=== PATIENT | male | born 1945 | race Caucasian/White ===

== ENCOUNTER 2023-07-16 16:19 | Inpatient (IN) | payer MEDICARE, SELFPAY ==
[2023-07-16] VITALS (36 sets, daily range): BP systolic 103–134; BP diastolic 57–80; PULSE 80–112; RESP 11–18; TEMP 36.9; O2SAT 98–100
--- NOTE | ~2023-07-16 | US_ITS ---
EXAMINATION: US venous doppler [facility] DATE: 07/16/2023 19:15 INDICATION: Bilateral lower limb swelling TECHNIQUE: Carpenter scale images without and with compression and Doppler images of the bilateral lower e xtremity veins were obtained. COMPARISON: None FINDINGS: The right common femoral vein, profunda femoral vein, femoral vein, popliteal vein, peroneal trunk, p osterior tibial veins, and greater saphenous vein are patent. The left common femoral vein, profunda femoral vein, femoral vein, popliteal vein, peroneal trunk, po sterior tibial veins, and greater saphenous vein are patent. IMPRESSION: 1. Patent bilateral lower extremity veins. No evidence of deep venous thrombosis. Reviewed, dictated and finalized at location F. IMPRESSION: 1. Patent bilateral lower extremity veins. No evidence of deep venous thrombosi s.
--- NOTE | ~2023-07-16 | XR_ITS ---
EXAMINATION: XR hand LT min 3V INDICATION: Left hand pain TECHNIQUE: Three views of the left hand are obtained. COMPARISON: None available FINDINGS: Bone alignment is normal. There is no fracture. There is moderate polyarticular osteoarthri tis. The soft tissues are unremarkable. IMPRESSION: 1. No acute osseous abnormality. Reviewed, dictated and finalized at location F.
--- NOTE | ~2023-07-16 | US_ITS ---
EXAMINATION: US renal BI DATE: 07/22/2023 18:11 INDICATION: elevated creatinine TECHNIQUE: Multiple grayscale and Doppler ultrasound images of the kidneys were obtained. COMPARISON: None. FINDINGS: The right kidney measures 10.0 x 4.2 x 4.4 cm. The left kidney was obscured by bowel gas. Right corti bebo thinning. Increased right kidney parenchymal echogenicity. There is mild right hydronephrosis. Th e bladder is normal. Ureteral jets not appreciated during the examination. IMPRESSION: Mild right renal atrophy and medical renal disease. Mild right hydronephrosis. Left kidney not visual ized. Reviewed, dictated and finalized at location K. IMPRESSION: Mild right renal atrophy and medical renal disease. Mild right hydronephrosis. Left kidney not visualized.
--- NOTE | ~2023-07-16 | XR_ITS ---
EXAMINATION: XR chest 2V DATE: 07/22/2023 14:23 INDICATION: Shortness of breath TECHNIQUE: AP and lateral views of the chest are obtained. COMPARISON: 07/16/2023 FINDINGS: There are airspace opacities of the lung bases. Small pleural effusions are present. The pr eviously described opacities of the right mid and upper lung zones have resolved. The cardiomediastin al silhouette is normal. There is moderate thoracic spondylosis. IMPRESSION: 1. Bibasilar airspace opacity, consistent with atelectasis versus pneumonia. 2. Small pleural effusions. Reviewed, dictated and finalized at location F.
--- NOTE | ~2023-07-16 | CT_ITS ---
EXAMINATION: CT brain wo con INDICATION: Head injury COMPARISON: None TECHNIQUE: Standard unenhanced head CT. The dose-length product (DLP) was 605.33 mGy-cm. The mA was a djusted according to patient size. Iterative reconstruction technique was employed. FINDINGS: There is a 7 mm contusion medially in the right cerebellum. No evidence of mass lesion. No evidence of acute infarction. There is an old right occipital infarct. There is moderate periventricu lar and subcortical hypodensity probably related to small vessel ischemic disease. There is moderate prominence of the sulci and ventricles related to cerebral atrophy. Intracranial calcified cerebral a therosclerosis is noted. No extra-axial collections. No mass effect or midline shift. The orbits and soft tissues are unremarkable. The visualized sinuses and mastoid air cells are well aerated. IMPRESSION: 1. Small right cerebellar contusion. This finding [facility]. 2. Age related findings. Reviewed, dictated and finalized at location F. IMPRESSION: 1. Small right cerebellar contusion. This finding was discussed with Sharon caruso PA-C in the Emergency Department at 1950 hours on 07/16/2023. 2. Age related findings.
--- NOTE | ~2023-07-16 | XR_ITS ---
EXAMINATION: XR hand RT min 3V INDICATION: Right hand pain TECHNIQUE: Three views of the right hand are obtained. COMPARISON: None available FINDINGS: Bone alignment is normal. There is no fracture. There is moderate polyarticular osteoarthri tis. The soft tissues are unremarkable. IMPRESSION: 1. No acute osseous abnormality. Reviewed, dictated and finalized at location F.
--- NOTE | ~2023-07-16 | XR_ITS ---
EXAMINATION: XR chest 1V INDICATION: Chest pain TECHNIQUE: Frontal view of the chest is obtained. COMPARISON: None available FINDINGS: There is volume loss in the right hemithorax. There are airspace opacities throughout the r ight lung. No pleural effusion or pneumothorax identified. The heart size is normal for technique. IMPRESSION: 1. Volume loss in the right hemithorax with airspace opacities throughout the right lung which could be infectious or inflammatory. Follow-up with nonemergent CT of the chest is recommended. Reviewed, dictated and finalized at location F. IMPRESSION: 1. Volume loss in the right hemithorax with airspace opacities throughout the r ight lung which could be infectious or inflammatory. Follow-up with nonemergent CT of the chest is recommended.
--- NOTE | ~2023-07-16 | XR_ITS ---
EXAMINATION: XR hip BI 2V w AP pelvis DATE: 07/16/2023 19:29 INDICATION: Pain after fall TECHNIQUE: AP view of the pelvis and two views of each hip were obtained. COMPARISON: None. FINDINGS: Bone alignment is normal. There is no fracture. There is mild osteoarthritis of the hips. P hleboliths are noted in the pelvis. IMPRESSION: 1. No acute osseous abnormality. Reviewed, dictated and finalized at location F.
--- NOTE | ~2023-07-16 | MR_ITS ---
EXAMINATION: MR brain/brain stem wo/w con DATE: 07/20/2023 15:30 INDICATION: Abnormal CT scan. TECHNIQUE: Magnetic resonance imaging (MRI) of the brain and brainstem was performed without and with 14 mL Multihance intravenous contrast. Sequences included sagittal and axial T1-weighted SE, axial d iffusion-weighted FS SE, axial 3D SWAN, axial T2-weighted FLAIR, and axial T2-weighted FSE. Postcontr ast axial and coronal T1-weighted SE was obtained. Apparent diffusion coefficient (ADC) maps were cre ated. COMPARISON: CT dated 07/16/2023 FINDINGS: Moderate-sized region of encephalomalacia in the extending from the right occipital lobe along the me dial right temporal lobe consistent with chronic infarct. Additional small old lacunar infarcts at th e right frontal lobe garcia radiata common the left thalamus and in the bilateral cerebellar hemisphe res. There are no areas of restricted diffusion to suggest acute infarction. There are several scatte red small foci of susceptibility artifact in the bilateral cerebral hemispheres and bilateral basal g anglia consistent with old blood products related to chronic microhemorrhage, most likely related to hypertension but could also be seen with amyloid angiopathy. There are scattered areas of nonspecific increased T2-weighted signal intensity in the cerebral white matter, predominantly involving the johnathon p and periventricular white matter. There are no intraparenchymal signal abnormalities seen on the ot her pulse sequences. Symmetric prominence of the sulci and ventricles consistent with moderate age-ap propriate diffuse cerebral volume loss. There are no abnormal extra-axial fluid collections. Flow voi ds are seen in the cerebral arteries on the T2-weighted sequences consistent with their expected leger ncy. Mucous retention cyst in the posterior left maxillary sinus. Visualized orbits and soft tissues are unremarkable. There are no areas of abnormal enhancement on the post contrast images. IMPRESSION: 1. 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 Additional small old lacunar infa rcts at the left thalamus, right frontal lobe and bilateral cerebellar hemispheres. 2. Age-related changes including moderate diffuse volume loss and moderate scattered periventricular predominant nonspecific white matter T2 hyperintensity consistent with chronic small vessel ischemic disease. 3. Multiple scattered small foci of susceptibility artifact consistent with presence of old blood pro ducts likely related to chronic microhemorrhage such as in the setting of hypertension or amyloid ang iopathy. Reviewed, dictated and finalized at location A. IMPRESSION: 1. 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 Additional small old lacunar infarcts at the left thalamus, right frontal lobe and bilater al cerebellar hemispheres. 2. Age-related changes including moderate diffuse volume loss and moderate scat tered periventricular predominant nonspecific white matter T2 hyperintensity co nsistent with chronic small vessel ischemic disease. 3. Multiple scattered small foci of susceptibility artifact consistent with pre sence of old blood products likely related to chronic microhemorrhage such as i n the setting of hypertension or amyloid angiopathy.
--- NOTE | ~2023-07-16 | XR_ITS ---
EXAMINATION: XR abdomen/kub 1V DATE: 07/20/2023 13:35 INDICATION: MRI clearance. TECHNIQUE: A supine view of the abdomen on 2 radiographs was obtained. COMPARISON: None. FINDINGS: Stool distends the rectosigmoid. The small bowel is normal in caliber. There is no radiopaq ue foreign body. IMPRESSION: 1. Stool distends the rectosigmoid. Reviewed, dictated and finalized at location E.
--- NOTE | ~2023-07-16 | CT_ITS ---
EXAMINATION: CT cervical spine wo con DATE: 07/16/2023 20:24 INDICATION: Head injury TECHNIQUE: Computed tomography (CT) of the cervical spine was performed without intravenous contrast. The dose-length product (DLP) was 430.95 mGy-cm. Automated exposure control and iterative reconstruc tion technique were employed. COMPARISON: None FINDINGS: There are 2 mm of anterolisthesis of C3 on C4 and C4 on C5. There is no fracture. The odont oid process is intact. There is moderate loss of intervertebral disc space height at C6-7 and mild lo ss of disc space height at C5-6. The prevertebral soft tissues are normal. There is multilevel mild f acet and uncovertebral joint osteoarthritis. The C3 and C4 facets are fused on the right. A left mast oid effusion is noted. IMPRESSION: 1. Moderate cervical spondylosis without acute findings. Reviewed, dictated and finalized at location F.
--- NOTE | 2023-07-16 18:35 | ED.RECABL ---
HPI - Recheck/Abnormal Lab/Rx General Chief Complaint: Extremity Injury, Upper <Sharon Chacon PA-C - Last Filed: 07/17/23 02:36> Stated Complaint: right hip FX <Sharon Chacon PA-C - Last Filed: 07/17/23 02:36> Time Seen by Provider: 07/16/23 17:14 <Sharon Chacon PA-C - Last Filed: 07/17/23 02:36> Source: patient and EMS <Sharon Chacon PA-C - Last Filed: 07/17/23 02:36> Mode of arrival: EMS <LISA Cabrera Last Filed: 07/17/23 02:36> Limitations: dementia <Sharon Chacon PA-C - Last Filed: 07/17/23 02:36> History of Present Illness HPI narrative: This is an 78-year-old male that presents to the emergency department after an unwitnessed fall at his nursing facility 5 days ago. Patient has history of dementia, unable to obtain any information from him. Her his facility he had fallen on Wednesday. He has some worsening swelling in his hand which prompted them to do an x-ray which showed a fracture in his finger. He has also had swelling in his hands and lower extremities. <Sharon Chacon PA-C - Last Filed: 07/17/23 02:36> Related Data Home Medications: Home Medications Medication Instructions Recorded Confirmed calcitriol 0.25 mcg capsule 0.25 mcg PO DAILY 07/17/23 07/17/23 clonidine HCl 0.1 mg tablet 0.1 mg PO BID 07/17/23 07/17/23 folic acid 1 mg tablet 1 mg PO HS 07/17/23 07/17/23 isosorbide mononitrate 30 mg 30 mg PO DAILY 07/17/23 07/17/23 tablet,extended release 24 hr losartan 25 mg tablet 25 mg PO DAILY 07/17/23 07/17/23 mirtazapine 7.5 mg tablet 7.5 mg PO HS 07/17/23 07/17/23 nifedipine 30 mg tablet,extended 30 mg PO DAILY 07/17/23 07/17/23 release pantoprazole 20 mg tablet,delayed 20 mg PO DAILY 07/17/23 07/17/23 release rosuvastatin 5 mg tablet 5 mg PO DAILY 07/17/23 07/17/23 sodium bicarbonate 650 mg tablet 1,300 mg PO BID 07/17/23 07/17/23 <Sharon Chacon PA-C - Last Filed: 07/17/23 02:36> Allergies/Adverse Reactions: Allergies Allergy/AdvReac Type Severity Reaction Status Date / Time No Known Allergies Allergy Unverified 05/09/12 06:57 <Sharon Chacon PA-C - Last Filed: 07/17/23 02:36> Review of Systems Review of Systems: ROS unobtainable: Yes unobtainable due to medical condition <Sharon Chacon PA-C - Last Filed: 07/17/23 02:36> PMFSH Past Medical History Medical History: Medical History (Updated 07/17/23 @ 02:29 by Sharon Chacon PA-C) History of dementia History of gastroesophageal reflux (GERD) History of hyperlipidemia History of hypertension <Sharon Chacon PA-C - Last Filed: 07/17/23 02:36> Social History Social History: Social History (Updated 07/16/23 @ 18:37 by Sharon Chacon PA-C) Smoking status: Never smoker Alcohol intake: former Substance use: never Substance use type: does not use Spiritual care concerns: No <Sharon Chacon PA-C - Last Filed: 07/17/23 02:36> Exam Narrative: GENERAL: Elderly, well-nourished, and in no acute distress. HEAD: Normocephalic, atraumatic. EYES: PERRLA and EOMI. ENT: Nares clear, no rhinorrhea or epistaxis. Mucous membranes moist. Oropharynx without tonsillar hypertrophy exudate or other lesions. NECK: Supple. No adenopathy or masses. No cervical spine tenderness CHEST: Clear to auscultation. No respiratory distress. No wheezes rales or rhonchi HEART: Regular rate and rhythm. No murmur heard. Normal peripheral pulses. ABDOMEN: Soft, nontender, nondistended, normal active bowel sounds. EXTREMITIES: Normal range of motion. No obvious deformity. Pitting edema to the bilateral lower extremities SKIN: Warm, dry, no rash. NEURO: Alert and oriented x1. Does not follow commands PSYCH: Normal mood and affect <Sharon Chacon PA-C - Last Filed: 07/17/23 02:36> Course Course Emergency Course: Patient's son was updated on his workup <Sharon Chacon PA-C - Last Filed: 07/17/23 02:36> CONTROLLED AREA CHECKER/PA Physician Supervision F
--- NOTE | 2023-07-16 18:45 | PC.NURSE ---
called [facility], spoke with Kamille, states there is no advance directive at this time. she states he is a new admit and his has dementia. full code by default
[2023-07-16 19:55] LABS: Basophils Percent Auto 0.4 % (0.2-1.2); Eosinophils Absolute Auto 0.2 K/mm3 (0-0.3); Hematocrit 28.9 % (42.0-52.0); Hemoglobin 9.3 g/dL (14.0-18.0); Immature Granulocyte Absolute 0.04 K/mm3 (0.00-0.031); Immature Granulocyte Percent A 0.5 % (0-0.5); Lymphocytes Absolute Auto 2.07 K/mm3 (0.9-3.2); Lymphocytes Percent Auto 28.2 % (18.3-44.2); Mean Corpuscular HGB Conc 32.2 g/dl (32-36); Mean Corpuscular Hemoglobin 34.2 pg (26-34); Mean Corpuscular Volume 106.3 fl (80-100); Mean Platelet Volume 10.2 fl (7.4-10.4); Monocytes Absolute Auto 0.7 K/mm3 (0.1-0.6); Monocytes Percent Auto 9.8 % (2.6-8.5); Neutrophils Absolute Auto 4.3 K/mm3 (1.3-6.7); Neutrophils Percent Auto 58.1 % (45.5-73.1); Platelet Count Result 326 k/mm3 (150-375); Red Blood Count 2.72 M/mm3 (4.6-6.20); Red Cell Distribution Width 15.4 % (11.5-14.5); White Blood Count 7.3 K/mm3 (4.5-10.0)
[2023-07-16 20:18] LABS: Alanine Aminotransferase 23 U/L (6-50); Albumin Level 3.1 g/dL (3.5-5.1); Alkaline Phosphatase 99 U/L (38-126); Anion Gap 2 mmol/L (8-16); Aspartate Amino Transferase 32 U/L (17-59); Bilirubin,Total 0.3 mg/dL (0.2-1.3); Blood Urea Nitrogen 46 mg/dL (9-20); Calcium 8.7 mg/dL (8.4-10.2); Carbon Dioxide 23 mmol/L (22-30); Chloride 116 mmol/L (98-107); Estimated CRCL calculation 29 ml/min; Estimated Glomerular Filt Rate 32; Glucose 97 mg/dL (65-110); Potassium 4.5 mmol/L (3.4-5.0); Sodium 141 mmol/L (137-145)
[2023-07-16 20:27] LABS: NT Pro B Type Natriuretic Pept 2980 pg/mL (19.9-100)
--- NOTE | 2023-07-16 22:30 | PC.NURSE ---
Patient been stuck for blood cultures by 3 staff members. Unable to obtain at this time and phlebotomy was called.
[2023-07-16 22:54] LABS: Influenza A QL RT-PCR Negative (Negative); Influenza B QL RT-PCR Negative (Negative); RSV RNA, RT-PCR Negative (Negative); SARS-CoV-2 RNA PCR Negative (Negative)
--- NOTE | 2023-07-16 23:52 | PM.IMHP ---
H&P: HPI History of Present Illness Date/Time: 07/16/23 23:52 Chief Complaint: Fall Narrative: This is an 78-year-old male detention resident with past medical history significant for dementia, GERD, dyslipidemia, hypertension. Patient was brought to the emergency room for evaluation due to fall unw[facility]ed at detention apparently this happened few days ago. Patient is unable to provide any meaningful history. Here preliminary workup was significant for chest x-ray with infiltrate, chemistry panel was significant for BUN of 48 creatinine 2 hemoglobin was 9 hematocrit 28 MCV 106 BNP 2980 EXAMINATION: CT brain wo con ? INDICATION: Head injury ? COMPARISON: None TECHNIQUE: Standard unenhanced head CT. The dose-length product (DLP) was 605.33 mGy-cm. The mA was adjusted according to patient size. Iterative reconstruction technique was employed. ? FINDINGS: There is a 7 mm contusion medially in the right cerebellum. No evidence of mass lesion. No evidence of acute infarction. There is an old right occipital infarct. There is moderate periventricular and subcortical hypodensity probably related to small vessel ischemic disease. There is moderate prominence of the sulci and ventricles related to cerebral atrophy. Intracranial calcified cerebral atherosclerosis is noted. No extra-axial collections. No mass effect or midline shift. The orbits and soft tissues are unremarkable. The visualized sinuses and mastoid air cells are well aerated. IMPRESSION: 1. Small right cerebellar contusion. This finding was discussed with Sharon Chacon PA-C in the Emergency Department at 1950 hours on 07/16/2023. 2. Age related findings. EXAMINATION: XR hip BI 2V w AP pelvis DATE: 07/16/2023 19:29 INDICATION: Pain after fall TECHNIQUE: AP view of the pelvis and two views of each hip were obtained. COMPARISON: None. FINDINGS: Bone alignment is normal. There is no fracture. There is mild osteoarthritis of the hips. Phleboliths are noted in the pelvis. IMPRESSION: 1. No acute osseous abnormality. EXAMINATION: XR chest 1V INDICATION: Chest pain TECHNIQUE: Frontal view of the chest is obtained. COMPARISON: None available FINDINGS: There is volume loss in the right hemithorax. There are airspace opacities throughout the right lung. No pleural effusion or pneumothorax identified. The heart size is normal for technique. IMPRESSION: 1. Volume loss in the right hemithorax with airspace opacities throughout the right lung which could be infectious or inflammatory. Follow-up with nonemergent CT of the chest is recommended. Review of Systems Review of Systems: ROS unobtainable: Yes unobtainable due to mental status ( dementia) [facility] Past Medical History Medical History (Updated 07/17/23 @ 02:10 by Isaak Nunez MD) History of dementia History of gastroesophageal reflux (GERD) History of hyperlipidemia History of hypertension Social History Social History (Updated 07/16/23 @ 18:37 by Sharon Chacon PA-C) Smoking status: Never smoker Alcohol intake: former Substance use: never Substance use type: does not use Spiritual care concerns: No Meds Home Medications and Allergies Home Medications Medication Instructions Recorded Confirmed Type calcitriol 0.25 mcg capsule 0.25 mcg PO DAILY 07/17/23 07/17/23 History clonidine HCl 0.1 mg tablet 0.1 mg PO BID 07/17/23 07/17/23 History folic acid 1 mg tablet 1 mg PO HS 07/17/23 07/17/23 History isosorbide mononitrate 30 mg 30 mg PO DAILY 07/17/23 07/17/23 History tablet,extended release 24 hr losartan 25 mg tablet 25 mg PO DAILY 07/17/23 07/17/23 History mirtazapine 7.5 mg tablet 7.5 mg PO HS 07/17/23 07/17/23 History nifedipine 30 mg tablet,extended 30 mg PO DAILY 07/17/23 07/17/23 History release pantoprazole 20 mg tablet,delayed 20 mg PO DAILY 07/17/23 07/17/23 History release rosuvastatin 5 mg tablet 5 mg PO DAILY 07/17/23 07/17/23 History sodium
[2023-07-17] VITALS (12 sets, daily range): BP systolic 117–141; BP diastolic 66–72; PULSE 68–88; RESP 16–19; TEMP 36.5–36.8; O2SAT 96–100; BMI 21.3; BMI 10.0
--- NOTE | 2023-07-17 01:17 | ADMGEN ---
This patient, Ezio Terry, was admitted to Medical Room 255-. Patient/family oriented to hospital policies and general routines including ID bracelet, bed and alarms, visiting hours, pain management, procedures, bathroom and other care routines, personal items, smoking policy, room service/diet, and visiting hours. Information on how to activate the Rapid Response Team has been discussed. Patient/Family are encouraged to report perceived risks to care and to ask questions if they do not understand what they are told or what they should do.
[2023-07-17] MEDS: AZITHROMYCIN 500 MG/NS 250 ML 500 MG/250 ML BAG 250 MG IVPB (06:05)
[2023-07-17] MEDS: cloNIDine HCL 0.1 MG TABLET PO ×2 (09:45→18:58)
[2023-07-17] MEDS: ISOSORBIDE MONONITRATE 30 MG TAB.ER.24H PO (09:45)
[2023-07-17] MEDS: calcitrioL 0.25 MCG CAPSULE PO (09:45)
[2023-07-17] MEDS: PANTOPRAZOLE SOD SESQUIHYDRATE 20 MG TAB PO (09:45)
[2023-07-17] MEDS: NIFEdipine 30 MG TAB.ER.24 PO (09:45)
[2023-07-17] MEDS: SODIUM BICARBONATE TAB 650 MG TABLET 1300 MG PO ×2 (09:45→18:58)
--- NOTE | 2023-07-17 10:43 | PC.NURSE ---
Attempted to call patient's son, Morales Terry, to go over MRI screening form. Left name and call back number
--- NOTE | 2023-07-17 11:00 | PC.NURSE ---
Spoke with Morales Terry, patient's son to try and fill out MRI screening form. Son unable to answer questions to complete form.
[2023-07-17 14:03] LABS: Basophils Percent Auto 0.4 % (0.2-1.2); Eosinophils Absolute Auto 0.1 K/mm3 (0-0.3); Eosinophils Percent Auto 1.6 % (0-4.4); Hematocrit 28.1 % (42.0-52.0); Hemoglobin 8.9 g/dL (14.0-18.0); Immature Granulocyte Absolute 0.04 K/mm3 (0.00-0.031); Immature Granulocyte Percent A 0.6 % (0-0.5); Lymphocytes Absolute Auto 1.77 K/mm3 (0.9-3.2); Lymphocytes Percent Auto 25.7 % (18.3-44.2); Mean Corpuscular HGB Conc 31.7 g/dl (32-36); Mean Corpuscular Volume 107.3 fl (80-100); Mean Platelet Volume 10.7 fl (7.4-10.4); Monocytes Absolute Auto 0.7 K/mm3 (0.1-0.6); Monocytes Percent Auto 9.9 % (2.6-8.5); Neutrophils Absolute Auto 4.3 K/mm3 (1.3-6.7); Neutrophils Percent Auto 61.8 % (45.5-73.1); Platelet Count Result 330 k/mm3 (150-375); Red Blood Count 2.62 M/mm3 (4.6-6.20); Red Cell Distribution Width 15.2 % (11.5-14.5); White Blood Count 6.9 K/mm3 (4.5-10.0)
[2023-07-17 14:13] LABS: Anion Gap 6 mmol/L (8-16); Blood Urea Nitrogen 46 mg/dL (9-20); Calcium 8.6 mg/dL (8.4-10.2); Carbon Dioxide 21 mmol/L (22-30); Chloride 112 mmol/L (98-107); Estimated CRCL calculation 30 ml/min; Estimated Glomerular Filt Rate 36; Glucose 209 mg/dL (65-110); Potassium 4.5 mmol/L (3.4-5.0); Sodium 139 mmol/L (137-145)
--- NOTE | 2023-07-17 14:38 | PM.IMPN ---
Progress Note: A&P Assessment and Plan (1) Pneumonia: Qualifiers: Laterality: right Lung location: unspecified part of lung Pneumonia type: due to unspecified organism Qualified Code(s): J18.9 - Pneumonia, unspecified organism Code(s): J18.9 - Pneumonia, unspecified organism Status: Acute (2) Cerebellar contusion: Qualifiers: Encounter type: initial encounter Loss of consciousness presence/duration: without LOC Qualified Code(s): S06.370A - Contusion, laceration, and hemorrhage of cerebellum without loss of consciousness, initial encounter Code(s): S06.37AA - Contusion, laceration, and hemorrhage of cerebellum with loss of consciousness status unknown, initial encounter Status: Acute (3) Megaloblastic anemia: Code(s): D53.1 - Other megaloblastic anemias, not elsewhere classified Status: Acute (4) Dementia: Code(s): F03.90 - Unspecified dementia, unspecified severity, without behavioral disturbance, psychotic disturbance, mood disturbance, and anxiety Status: Acute (5) Fall: Code(s): W19.XXXA - Unspecified fall, initial encounter Status: Acute (6) CKD (chronic kidney disease): Code(s): N18.9 - Chronic kidney disease, unspecified Status: Acute Plan This is 78-year-old male who presents after an unwitnessed fall at his nursing facility 5 days ago. He had worsening swelling in his hand which prompted an x-ray which demonstrated fracture in his finger. He resides permanently at alf. History of dementia, GERD, hyperlipidemia, hypertension, megaloblastic anemia? Take sodium bicarbonate chronically? Trauma eval in emergency department demonstrating small right cerebellar contusion, age related findings CT head. Venous Doppler without deep venous thrombosis. Right and left hand x-ray without acute abnormality. Chest x-ray demonstrating possible pneumonia. Cervical spondylosis. Flu RSV COVID PCR negative. Admitted on 07/15 for further evaluation and workup. Unwitnessed fall at alf -no acute abnormalities on trauma workup except for suspected cerebellar contusion -PTOT consulted -fall precautions Cerebellar contusion/mass -Dr. Galeas contacted from emergency department and suggested the contusion is in an odd placement. Pending MRI brain to evaluate for mass. Community-acquired pneumonia -continue ceftriaxone and azithromycin Dementia -appears to be stable. Unclear why the patient takes sodium bicarbonate. We will continue this for now History of hypertension -continue home dose antihypertensives except full losartan held on admission. GERD -continue Protonix Megaloblastic anemia -monitor hemoglobin. Continue folic acid CKD stage 3 -serum creatinine admission 2.0. Now down to 1.8. Continue to monitor. Elevated BNP -patient is on room air his lower extremity edema is 1+ at the feet. Continue to monitor. FEN: Saline lock IV. Heart healthy diet. GI prophylaxis: Continue home dose Protonix DVT prophylaxis: SCDs only. Hold off on pharmacological prophylaxis for now considering his fall and possible cerebellar contusion. Lines: Peripheral IV Code Status: Currently attempting to find the patient's code status through family. Dispo: PTOT consulted. Stable on medical floor. Subjective Date/time seen: 07/17/23 14:38 Interval history: No acute overnight events. Patient is very confused and cannot provide history. This is reported to be is baseline Review of Systems Review of Systems: All systems reviewed & are unremarkable except as noted in HPI and below (Subjective) Exam Const: General: comfortable and no acute distress Other: Pleasantly confused Eyes: Pupils: Equal, round and reactive pupils present Neck: Neck: supple Resp: Effort & Inspection: normal respiratory effort Auscultation: clear to auscultation bilaterally Cardio: Rate: regular rate Rhythm: regular
--- NOTE | 2023-07-17 16:40 | PC.NURSE ---
Attempter to call patient's to obtain consent to get medical records from [place]. Left name and call back number
[2023-07-17] MEDS: MIRTAZAPINE 7.5 MG TABLET PO (20:33)
[2023-07-17] MEDS: FOLIC ACID 1 MG TABLET PO (20:33)
[2023-07-18] VITALS (10 sets, daily range): BP systolic 113–153; BP diastolic 57–78; PULSE 62–78; RESP 16–18; TEMP 36.2–36.9; O2SAT 94–98
[2023-07-18] MEDS: AZITHROMYCIN 500 MG/NS 250 ML 500 MG/250 ML BAG 250 MG IVPB (04:37)
[2023-07-18 06:05] LABS: Basophils Percent Auto 0.4 % (0.2-1.2); Eosinophils Absolute Auto 0.2 K/mm3 (0-0.3); Eosinophils Percent Auto 2.2 % (0-4.4); Hematocrit 29.8 % (42.0-52.0); Hemoglobin 9.2 g/dL (14.0-18.0); Immature Granulocyte Absolute 0.02 K/mm3 (0.00-0.031); Immature Granulocyte Percent A 0.3 % (0-0.5); Lymphocytes Absolute Auto 2.12 K/mm3 (0.9-3.2); Lymphocytes Percent Auto 27.8 % (18.3-44.2); Mean Corpuscular HGB Conc 30.9 g/dl (32-36); Mean Corpuscular Hemoglobin 33.6 pg (26-34); Mean Corpuscular Volume 108.8 fl (80-100); Mean Platelet Volume 10.8 fl (7.4-10.4); Monocytes Absolute Auto 0.8 K/mm3 (0.1-0.6); Monocytes Percent Auto 10.9 % (2.6-8.5); Neutrophils Absolute Auto 4.5 K/mm3 (1.3-6.7); Neutrophils Percent Auto 58.4 % (45.5-73.1); Platelet Count Result 349 k/mm3 (150-375); Red Blood Count 2.74 M/mm3 (4.6-6.20); Red Cell Distribution Width 15.2 % (11.5-14.5); White Blood Count 7.6 K/mm3 (4.5-10.0)
[2023-07-18 06:21] LABS: Anion Gap 5 mmol/L (8-16); Blood Urea Nitrogen 45 mg/dL (9-20); Carbon Dioxide 25 mmol/L (22-30); Chloride 110 mmol/L (98-107); Estimated CRCL calculation 27 ml/min; Estimated Glomerular Filt Rate 32; Glucose 82 mg/dL (65-110); Magnesium 1.9 mg/dL (1.6-2.3); Potassium 4.4 mmol/L (3.4-5.0); Sodium 140 mmol/L (137-145)
[2023-07-18] MEDS: NIFEdipine 30 MG TAB.ER.24 PO (10:23)
[2023-07-18] MEDS: SODIUM BICARBONATE TAB 650 MG TABLET 1300 MG PO ×2 (10:23→18:02)
[2023-07-18] MEDS: PANTOPRAZOLE SOD SESQUIHYDRATE 20 MG TAB PO (10:23)
[2023-07-18] MEDS: cloNIDine HCL 0.1 MG TABLET PO ×2 (10:23→18:02)
[2023-07-18] MEDS: ISOSORBIDE MONONITRATE 30 MG TAB.ER.24H PO (10:23)
[2023-07-18] MEDS: calcitrioL 0.25 MCG CAPSULE PO (10:23)
--- NOTE | 2023-07-18 12:29 | WPDNEUROSGCN ---
Assessment and Plan Assessment and plan (1) Dementia: Code(s): F03.90 - Unspecified dementia, unspecified severity, without behavioral disturbance, psychotic disturbance, mood disturbance, and anxiety Status: Acute (2) Cerebellar lesion: Code(s): G93.9 - Disorder of brain, unspecified Status: Acute Plan Mr. Terry is an 78-year-old male with history of dementia who presented to the ER on Wednesday after an unwitnessed fall at [facility] prison several days prior. He is unable to provide any meaningful history but denies any current complaints. He does not have focal neurologic deficits. CT head shows a 9x6mm right cerebellar hyperdensity. This is an unusual location for a traumatic contusion and raises suspicion for a possible underlying mass. We are awaiting MRI brain without/with contrast which has been difficult to obtain due to his and family's inability to provide MRI screening history. If MRI is unable to be obtained, we could consider CT head without/with contrast, although I recognize he is also being treated for an EDMOND. At a minimum, I would obtain a follow up CT head without contrast to ensure stability of the lesion. Consult date: 07/18/23 HPI: Ezio Terry is a 78 year old male with history of dementia, HTN, HLD who presented to the ER on Wednesday night after an unwitnessed fall at his prison several days prior. He is unable to provide any information regarding the incident. Workup in the ER was concerning for possible pneumonia and EDMOND. CT head showed a small right cerebellar hyperdensity for which Neurosurgery was consulted. Currently, the patient denies headaches, nausea/vomiting, and other complaints. He is awaiting MRI. Review of Systems Review of Systems: All systems reviewed & are unremarkable except as noted in HPI and below PMFSH Past Medical History Medical History (Updated 07/18/23 @ 12:37 by Lilli Galeas MD) CKD (chronic kidney disease) History of dementia History of gastroesophageal reflux (GERD) History of hyperlipidemia History of hypertension Megaloblastic anemia Social History Social History (Updated 07/16/23 @ 18:37 by Sharon Chacon PA-C) Smoking status: Never smoker Alcohol intake: former Substance use: never Substance use type: does not use Spiritual care concerns: No Meds Home Medications and Allergies Home Medications Medication Instructions Recorded Confirmed Type calcitriol 0.25 mcg capsule 0.25 mcg PO DAILY 07/17/23 07/17/23 History clonidine HCl 0.1 mg tablet 0.1 mg PO BID 07/17/23 07/17/23 History folic acid 1 mg tablet 1 mg PO HS 07/17/23 07/17/23 History isosorbide mononitrate 30 mg 30 mg PO DAILY 07/17/23 07/17/23 History tablet,extended release 24 hr losartan 25 mg tablet 25 mg PO DAILY 07/17/23 07/17/23 History mirtazapine 7.5 mg tablet 7.5 mg PO HS 07/17/23 07/17/23 History nifedipine 30 mg tablet,extended 30 mg PO DAILY 07/17/23 07/17/23 History release pantoprazole 20 mg tablet,delayed 20 mg PO DAILY 07/17/23 07/17/23 History release rosuvastatin 5 mg tablet 5 mg PO DAILY 07/17/23 07/17/23 History sodium bicarbonate 650 mg tablet 1,300 mg PO BID 07/17/23 07/17/23 History Allergies Allergy/AdvReac Type Severity Reaction Status Date / Time No Known Allergies Allergy Unverified 05/09/12 06:57 Vital Signs Vital Signs - 24 hr 07/17/23 15:10 07/17/23 15:10 07/17/23 14:00 Temperature 97.7 F Pulse Rate 78 Respiratory Rate 19 Blood Pressure 131/70 Pulse Oximetry 99 Oxygen Delivery Room Air Room Air 07/17/23 16:00 07/17/23 18:58 07/17/23 19:17 Temperature 98.1 F Pulse Rate 73 80 Respiratory Rate 18 Blood Pressure 128/66 131/72 Pulse Oximetry 100 Oxygen Delivery 07/17/23 20:00 07/17/23 20:00 07/18/23 00:00 Temperature Pulse Rate 79 78 Respiratory Rate Blood Pressure Pulse Oximetry Oxygen Delivery Room Air 07/18/23 06:00 07/18/23 09:52 07/18/23 10:
--- NOTE | 2023-07-18 13:00 | PC.NURSE ---
Attempted to call patient's in order to obtain consent to request medical records from [place]. Unable to get through to with phone number that is listed in chart
--- NOTE | 2023-07-18 14:38 | PC.NURSE ---
telegraphic typewriter repairer reviewed charting/ assessment findings done by student, Geo Robertson, and agree with them
--- NOTE | 2023-07-18 15:58 | PC.NURSE ---
Spoke with patient's , Liliana Bridviktoriya, at the bedside to get consent to obtain medical records from [facility]. Information faxed
--- NOTE | 2023-07-18 16:02 | PM.IMPN ---
Progress Note: A&P Assessment and Plan (1) Pneumonia: Qualifiers: Laterality: right Lung location: unspecified part of lung Pneumonia type: due to unspecified organism Qualified Code(s): J18.9 - Pneumonia, unspecified organism Code(s): J18.9 - Pneumonia, unspecified organism Status: Acute (2) Cerebellar contusion: Qualifiers: Encounter type: initial encounter Loss of consciousness presence/duration: without LOC Qualified Code(s): S06.370A - Contusion, laceration, and hemorrhage of cerebellum without loss of consciousness, initial encounter Code(s): S06.37AA - Contusion, laceration, and hemorrhage of cerebellum with loss of consciousness status unknown, initial encounter Status: Acute (3) Megaloblastic anemia: Code(s): D53.1 - Other megaloblastic anemias, not elsewhere classified Status: Acute (4) Dementia: Code(s): F03.90 - Unspecified dementia, unspecified severity, without behavioral disturbance, psychotic disturbance, mood disturbance, and anxiety Status: Acute (5) Fall: Code(s): W19.XXXA - Unspecified fall, initial encounter Status: Acute (6) CKD (chronic kidney disease): Code(s): N18.9 - Chronic kidney disease, unspecified Status: Acute Plan This is 78-year-old male who presents after an unwitnessed fall at his nursing facility 5 days ago. He had worsening swelling in his hand which prompted an x-ray which demonstrated fracture in his finger. [facility] prison. History of dementia, GERD, hyperlipidemia, hypertension, megaloblastic anemia? Take sodium bicarbonate chronically? Trauma eval in emergency department demonstrating small right cerebellar contusion, age related findings CT head. Venous Doppler without deep venous thrombosis. Right and left hand x-ray without acute abnormality. Chest x-ray demonstrating possible pneumonia. Cervical spondylosis. Flu RSV COVID PCR negative. Admitted on 07/15 for further evaluation and workup. Unwitnessed fall at prison -no acute abnormalities on trauma workup except for suspected cerebellar contusion -PTOT consulted -fall precautions Cerebellar contusion/mass -Dr. Galeas contacted from emergency department and suggested the contusion is in an odd placement. Pending MRI brain to evaluate for mass. Community-acquired pneumonia -continue ceftriaxone and azithromycin Dementia -appears to be stable. Unclear why the patient takes sodium bicarbonate. We will continue this for now History of hypertension -continue home dose antihypertensives except for losartan held on admission. GERD -continue Protonix Megaloblastic anemia -monitor hemoglobin. Continue folic acid CKD stage 3 -appears to be stable. Continue to trend renal function. Elevated BNP -patient is on room air his lower extremity edema is 1+ at the feet. Continue to monitor. FEN: Saline lock IV. Heart healthy diet. GI prophylaxis: Continue home dose Protonix DVT prophylaxis: SCDs only. Hold off on pharmacological prophylaxis for now considering his fall and possible cerebellar contusion. Lines: Peripheral IV Code Status: Full code Dispo: PTOT consulted. Stable on medical floor. Subjective Date/time seen: 07/18/23 16:02 Interval history: No acute overnight events. Patient rest comfortably in bed with the head slightly elevated. He is hard of hearing but has no complaints. The is at bedside and has no concerns. Nursing team so working on obtaining MRI. Review of Systems Review of Systems: All systems reviewed & are unremarkable except as noted in HPI and below (Subjective) Exam Const: General: comfortable and no acute distress Other: Pleasantly confused Eyes: Pupils: Equal, round and reactive pupils present Neck: Neck: supple Resp: Effort & Inspection: normal respiratory effort Auscultation: clear to auscultation bilaterally Cardio: Rat
[2023-07-18] MEDS: MIRTAZAPINE 7.5 MG TABLET PO (20:02)
[2023-07-18] MEDS: FOLIC ACID 1 MG TABLET PO (20:02)
[2023-07-19] VITALS (9 sets, daily range): BP systolic 129–147; BP diastolic 69–79; PULSE 66–87; RESP 15–18; TEMP 36.1–36.6; O2SAT 95–99
[2023-07-19 06:02] LABS: Basophils Percent Auto 0.6 % (0.2-1.2); Eosinophils Absolute Auto 0.1 K/mm3 (0-0.3); Eosinophils Percent Auto 1.9 % (0-4.4); Hematocrit 28.9 % (42.0-52.0); Hemoglobin 9.1 g/dL (14.0-18.0); Immature Granulocyte Absolute 0.02 K/mm3 (0.00-0.031); Immature Granulocyte Percent A 0.3 % (0-0.5); Lymphocytes Absolute Auto 2.14 K/mm3 (0.9-3.2); Lymphocytes Percent Auto 34.1 % (18.3-44.2); Mean Corpuscular HGB Conc 31.5 g/dl (32-36); Mean Corpuscular Volume 107.8 fl (80-100); Mean Platelet Volume 10.9 fl (7.4-10.4); Monocytes Absolute Auto 0.7 K/mm3 (0.1-0.6); Monocytes Percent Auto 10.7 % (2.6-8.5); Neutrophils Absolute Auto 3.3 K/mm3 (1.3-6.7); Neutrophils Percent Auto 52.4 % (45.5-73.1); Platelet Count Result 320 k/mm3 (150-375); Red Blood Count 2.68 M/mm3 (4.6-6.20); White Blood Count 6.3 K/mm3 (4.5-10.0)
[2023-07-19 06:12] LABS: Anion Gap 7 mmol/L (8-16); Blood Urea Nitrogen 46 mg/dL (9-20); Calcium 8.9 mg/dL (8.4-10.2); Carbon Dioxide 22 mmol/L (22-30); Chloride 110 mmol/L (98-107); Estimated CRCL calculation 25 ml/min; Estimated Glomerular Filt Rate 29; Glucose 79 mg/dL (65-110); Potassium 4.3 mmol/L (3.4-5.0); Sodium 139 mmol/L (137-145)
--- NOTE | 2023-07-19 08:51 | PM.IMPN ---
Progress Note: A&P Assessment and Plan (1) Pneumonia: Qualifiers: Laterality: right Lung location: unspecified part of lung Pneumonia type: due to unspecified organism Qualified Code(s): J18.9 - Pneumonia, unspecified organism Code(s): J18.9 - Pneumonia, unspecified organism Status: Acute (2) Cerebellar contusion: Qualifiers: Encounter type: initial encounter Loss of consciousness presence/duration: without LOC Qualified Code(s): S06.370A - Contusion, laceration, and hemorrhage of cerebellum without loss of consciousness, initial encounter Code(s): S06.37AA - Contusion, laceration, and hemorrhage of cerebellum with loss of consciousness status unknown, initial encounter Status: Acute (3) Megaloblastic anemia: Code(s): D53.1 - Other megaloblastic anemias, not elsewhere classified Status: Acute (4) Dementia: Code(s): F03.90 - Unspecified dementia, unspecified severity, without behavioral disturbance, psychotic disturbance, mood disturbance, and anxiety Status: Acute (5) Fall: Code(s): W19.XXXA - Unspecified fall, initial encounter Status: Acute (6) CKD (chronic kidney disease): Code(s): N18.9 - Chronic kidney disease, unspecified Status: Acute Plan This is 78-year-old male who presents after an unwitnessed fall at his nursing facility 5 days ago. He had worsening swelling in his hand which prompted an x-ray which demonstrated fracture in his finger. He resides permanently at residential. History of dementia, GERD, hyperlipidemia, hypertension, megaloblastic anemia? Take sodium bicarbonate chronically? Trauma eval in emergency department demonstrating small right cerebellar contusion, age related findings CT head. Venous Doppler without deep venous thrombosis. Right and left hand x-ray without acute abnormality. Chest x-ray demonstrating possible pneumonia. Cervical spondylosis. Flu RSV COVID PCR negative. Admitted on 07/15 for further evaluation and workup. History is difficult to obtain from the who is a poor historian. We are still awaiting records from [place]. Unwitnessed fall at residential -no acute abnormalities on trauma workup except for suspected cerebellar contusion -PTOT consulted. They have since signed off reportedly since he is at his baseline. -fall precautions Cerebellar contusion/mass -Dr. Galeas contacted from emergency department and suggested the contusion is in an odd placement. Pending MRI brain to evaluate for mass. Reportedly the cannot provide information and the son lacks participation. Nursing team trying to get MRI form filled out again today. Community-acquired pneumonia -continue ceftriaxone and azithromycin -he does not appear septic/toxic otherwise. Dementia -appears to be stable. Unclear why the patient takes sodium bicarbonate. We will continue this for now. Being records. History of hypertension -at goal. Continue home dose antihypertensives except for losartan held on admission. GERD -continue Protonix Megaloblastic anemia -monitor hemoglobin. Continue folic acid CKD stage 3 -appears to be stable. Continue to trend renal function. Elevated BNP -this was checked on admission. Patient is on room air breathing well and has trivial lower extremity edema. You to monitor. FEN: Saline lock IV. Heart healthy diet. GI prophylaxis: Continue home dose Protonix DVT prophylaxis: SCDs only. Hold off on pharmacological prophylaxis for now considering his fall and possible cerebellar contusion. Lines: Peripheral IV Code Status: Full code requested by the family. Dispo: PTOT consulted. Stable on medical floor. Subjective Date/time seen: 07/19/23 08:51 Interval history: No acute overnight events. Patient rests comfortably in bed and is pleasantly confused as he always has been. Review of Systems Review of Systems: All systems reviewed & are unrema
[2023-07-19] MEDS: calcitrioL 0.25 MCG CAPSULE PO (10:02)
[2023-07-19] MEDS: PANTOPRAZOLE SOD SESQUIHYDRATE 20 MG TAB PO (10:02)
[2023-07-19] MEDS: SODIUM BICARBONATE TAB 650 MG TABLET 1300 MG PO ×2 (10:02→17:32)
[2023-07-19] MEDS: cloNIDine HCL 0.1 MG TABLET PO ×2 (10:02→17:32)
[2023-07-19] MEDS: NIFEdipine 30 MG TAB.ER.24 PO (10:02)
[2023-07-19] MEDS: ISOSORBIDE MONONITRATE 30 MG TAB.ER.24H PO (10:03)
[2023-07-19] MEDS: FOLIC ACID 1 MG TABLET PO (20:03)
[2023-07-19] MEDS: MIRTAZAPINE 7.5 MG TABLET PO (20:03)
[2023-07-20] VITALS (10 sets, daily range): BP systolic 112–144; BP diastolic 65–84; PULSE 65–83; RESP 16–18; TEMP 35.8–36.7; O2SAT 94–98
[2023-07-20 05:57] LABS: Basophils Percent Auto 0.5 % (0.2-1.2); Eosinophils Absolute Auto 0.1 K/mm3 (0-0.3); Eosinophils Percent Auto 1.5 % (0-4.4); Hematocrit 30.1 % (42.0-52.0); Hemoglobin 9.5 g/dL (14.0-18.0); Immature Granulocyte Absolute 0.03 K/mm3 (0.00-0.031); Immature Granulocyte Percent A 0.5 % (0-0.5); Lymphocytes Absolute Auto 1.88 K/mm3 (0.9-3.2); Lymphocytes Percent Auto 31.1 % (18.3-44.2); Mean Corpuscular HGB Conc 31.6 g/dl (32-36); Mean Corpuscular Hemoglobin 33.8 pg (26-34); Mean Corpuscular Volume 107.1 fl (80-100); Monocytes Absolute Auto 0.7 K/mm3 (0.1-0.6); Monocytes Percent Auto 11.6 % (2.6-8.5); Neutrophils Absolute Auto 3.3 K/mm3 (1.3-6.7); Neutrophils Percent Auto 54.8 % (45.5-73.1); Platelet Count Result 334 k/mm3 (150-375); Red Blood Count 2.81 M/mm3 (4.6-6.20); Red Cell Distribution Width 14.9 % (11.5-14.5)
[2023-07-20 06:13] LABS: Anion Gap 6 mmol/L (8-16); Blood Urea Nitrogen 48 mg/dL (9-20); Calcium 8.7 mg/dL (8.4-10.2); Carbon Dioxide 23 mmol/L (22-30); Chloride 110 mmol/L (98-107); Estimated CRCL calculation 24 ml/min; Estimated Glomerular Filt Rate 27; Glucose 83 mg/dL (65-110); Magnesium 2.2 mg/dL (1.6-2.3); Sodium 139 mmol/L (137-145)
[2023-07-20 08:10] LABS: Glucose Point of Care 90 mg/dl (65-105)
[2023-07-20] MEDS: AZITHROMYCIN 250 MG TABLET 500 MG PO (08:37)
[2023-07-20] MEDS: SODIUM CHLORIDE 0.9% IV 1,000 ML 75 ML IV CONT (08:38)
[2023-07-20] MEDS: NIFEdipine 30 MG TAB.ER.24 PO (08:38)
[2023-07-20] MEDS: calcitrioL 0.25 MCG CAPSULE PO (08:38)
[2023-07-20] MEDS: PANTOPRAZOLE SOD SESQUIHYDRATE 20 MG TAB PO (08:38)
[2023-07-20] MEDS: SODIUM BICARBONATE TAB 650 MG TABLET 1300 MG PO ×2 (08:38→17:58)
[2023-07-20] MEDS: AMOXICILLIN/CLAVULANATE K 500-125 MG TAB 1 TABLET PO ×2 (08:38→20:07)
[2023-07-20] MEDS: ISOSORBIDE MONONITRATE 30 MG TAB.ER.24H PO (08:38)
[2023-07-20] MEDS: cloNIDine HCL 0.1 MG TABLET PO ×2 (08:38→18:00)
--- NOTE | 2023-07-20 14:42 | PCCCNOTE ---
On 07/20/23, the student, [Michelle Mata], provided care and completed [facility] documentation on this patient. I have reviewed the student's documentation and agree with the findings.
--- NOTE | 2023-07-20 15:30 | PM.IMPN ---
Progress Note: A&P Assessment and Plan (1) Pneumonia: Qualifiers: Laterality: right Lung location: unspecified part of lung Pneumonia type: due to unspecified organism Qualified Code(s): J18.9 - Pneumonia, unspecified organism Code(s): J18.9 - Pneumonia, unspecified organism Status: Acute (2) Cerebellar contusion: Qualifiers: Encounter type: initial encounter Loss of consciousness presence/duration: without LOC Qualified Code(s): S06.370A - Contusion, laceration, and hemorrhage of cerebellum without loss of consciousness, initial encounter Code(s): S06.37AA - Contusion, laceration, and hemorrhage of cerebellum with loss of consciousness status unknown, initial encounter Status: Acute (3) Megaloblastic anemia: Code(s): D53.1 - Other megaloblastic anemias, not elsewhere classified Status: Acute (4) Dementia: Code(s): F03.90 - Unspecified dementia, unspecified severity, without behavioral disturbance, psychotic disturbance, mood disturbance, and anxiety Status: Acute (5) Fall: Code(s): W19.XXXA - Unspecified fall, initial encounter Status: Acute (6) CKD (chronic kidney disease): Code(s): N18.9 - Chronic kidney disease, unspecified Status: Acute Plan This is 78-year-old male who presents after an unwitnessed fall at his nursing facility 5 days ago. He had worsening swelling in his hand which prompted an x-ray which demonstrated fracture in his finger. [facility] History of dementia, GERD, hyperlipidemia, hypertension, megaloblastic anemia? Take sodium bicarbonate chronically? Trauma eval in emergency department demonstrating small right cerebellar contusion, age related findings CT head. Venous Doppler without deep venous thrombosis. Right and left hand x-ray without acute abnormality. Chest x-ray demonstrating possible pneumonia. Cervical spondylosis. Flu RSV COVID PCR negative. Admitted on 07/15 for further evaluation and workup. History is difficult to obtain from the who is a poor historian. We are still awaiting records from [place]. [facility] -no acute abnormalities on trauma workup except for suspected cerebellar contusion -PTOT consulted. They have since signed off reportedly since he is at his baseline. -fall precautions Cerebellar contusion/mass -Dr. Galeas contacted from emergency department and suggested the contusion is in an odd placement. Pending MRI brain to evaluate for mass. Reportedly the cannot provide information and the son lacks participation. Nursing team trying to get MRI form filled out again -get the medical records from the nursing facility -brain MRI or CT scan Head to follow-up on imaging from admission -Follow-up closely with Neurosurgery Community-acquired pneumonia -initially patient started on oral ceftriaxone and azithromycin, switched to full oral Augmentin and azithromycin -he does not appear septic/toxic otherwise -WBC count stable Dementia -chronic, stable. Unclear why the patient takes sodium bicarbonate. We will continue this for now. Being records. Hypertension -at goal. Continue home dose antihypertensives except for losartan held on admission. GERD -continue Protonix Megaloblastic anemia -monitor hemoglobin. Continue folic acid -B12 and folic acid levels ordered CKD stage 3 -Continue to trend renal function -Gentle IV hydration ordered with normal saline at 75 cc/hour for 1000cc -Strict input and output monitoring -Monitor renal functions closely Elevated BNP -this was checked on admission. Patient is on room air breathing well and has trivial lower extremity edema. Continue to monitor. FEN: Saline lock IV. Heart healthy diet. GI prophylaxis: Continue home dose Protonix DVT prophylaxis: SCDs only. Hold off on pharmacological prophylaxis for now considering his fall and possible cerebellar cont
[2023-07-20] MEDS: MIRTAZAPINE 7.5 MG TABLET PO (20:07)
[2023-07-20] MEDS: FOLIC ACID 1 MG TABLET PO (20:07)
[2023-07-21] VITALS (10 sets, daily range): BP systolic 113–143; BP diastolic 58–80; PULSE 70–89; RESP 16–18; TEMP 36.4–36.9; O2SAT 93–99
[2023-07-21 05:46] LABS: Basophils Percent Auto 0.3 % (0.2-1.2); Eosinophils Absolute Auto 0.1 K/mm3 (0-0.3); Eosinophils Percent Auto 1.5 % (0-4.4); Hematocrit 29.7 % (42.0-52.0); Hemoglobin 9.7 g/dL (14.0-18.0); Immature Granulocyte Absolute 0.02 K/mm3 (0.00-0.031); Immature Granulocyte Percent A 0.3 % (0-0.5); Lymphocytes Absolute Auto 1.68 K/mm3 (0.9-3.2); Lymphocytes Percent Auto 25.1 % (18.3-44.2); Mean Corpuscular HGB Conc 32.7 g/dl (32-36); Mean Corpuscular Volume 107.2 fl (80-100); Mean Platelet Volume 10.5 fl (7.4-10.4); Monocytes Absolute Auto 0.8 K/mm3 (0.1-0.6); Monocytes Percent Auto 11.5 % (2.6-8.5); Neutrophils Absolute Auto 4.1 K/mm3 (1.3-6.7); Neutrophils Percent Auto 61.3 % (45.5-73.1); Platelet Count Result 297 k/mm3 (150-375); Red Blood Count 2.77 M/mm3 (4.6-6.20); Red Cell Distribution Width 14.8 % (11.5-14.5); White Blood Count 6.7 K/mm3 (4.5-10.0)
[2023-07-21 06:02] LABS: Anion Gap 8 mmol/L (4-12); Blood Urea Nitrogen 44 mg/dL (9-20); Calcium 8.9 mg/dL (8.4-10.2); Carbon Dioxide 22 mmol/L (22-30); Chloride 109 mmol/L (98-107); Estimated CRCL calculation 20 ml/min; Estimated Glomerular Filt Rate 23; Glucose 85 mg/dL (65-110); Phosphorus 5.5 mg/dL (2.5-4.5); Potassium 4.8 mmol/L (3.4-5.0); Sodium 139 mmol/L (137-145)
[2023-07-21 07:20] LABS: Folic Acid > 20.0 ng/mL (2.76->20)
[2023-07-21] MEDS: AZITHROMYCIN 250 MG TABLET 500 MG PO (09:27)
[2023-07-21] MEDS: PANTOPRAZOLE SOD SESQUIHYDRATE 20 MG TAB PO (09:28)
[2023-07-21] MEDS: calcitrioL 0.25 MCG CAPSULE PO (09:28)
[2023-07-21] MEDS: SODIUM BICARBONATE TAB 650 MG TABLET 1300 MG PO ×2 (09:28→17:56)
[2023-07-21] MEDS: ISOSORBIDE MONONITRATE 30 MG TAB.ER.24H PO (09:28)
[2023-07-21] MEDS: cloNIDine HCL 0.1 MG TABLET PO ×2 (09:28→17:56)
[2023-07-21] MEDS: NIFEdipine 30 MG TAB.ER.24 PO (09:28)
[2023-07-21] MEDS: AMOXICILLIN/CLAVULANATE K 500-125 MG TAB 1 TABLET PO ×2 (09:29→20:11)
[2023-07-21] MEDS: CYANOCOBALAMIN INJ 1,000 MCG/ML VIAL 1000 MCG IM (11:57)
[2023-07-21] MEDS: SODIUM CHLORIDE 0.9% IV 1,000 ML 100 ML IV CONT (12:19)
--- NOTE | 2023-07-21 16:06 | P.PNIM_ITS ---
Progress Note: A&P Assessment and Plan (1) Pneumonia: Qualifiers: Laterality: right Lung location: unspecified part of lung Pneumonia type: due to unspecified organism Qualified Code(s): J18.9 - Pneumonia, unspecified organism Code(s): J18.9 - Pneumonia, unspecified organism Status: Acute (2) Cerebellar contusion: Qualifiers: Encounter type: initial encounter Loss of consciousness presence/durat ion: without LOC Qualified Code(s): S06.370A - Contusion, laceration, and hemorrhage of cerebellum without loss of consciousness, initial encounter Code(s): S06.37AA - Contusion, laceration, and hemorrhage of cerebellum with loss of consciousness status unknown, initial encounter Status: Acute (3) Megaloblastic anemia: Code(s): D53.1 - Other megaloblastic anemias, not elsewhere classified Status: Acute (4) Dementia: Code(s): F03.90 - Unspecified dementia, unspecified severity, without behavioral disturbance, psychotic disturbance, mood disturbance, and anxiety Status: Acute (5) Fall: Code(s): W19.XXXA - Unspecified fall, initial encounter Status: Acute (6) CKD (chronic kidney disease): Code(s): N18.9 - Chronic kidney disease, unspecified Status: Acute Plan This is 78-year-old male who presents after an unwitnessed fall at his nursing facility 5 days ago. He had worsening swelling in his hand which prompted an x- ray which demonstrated fracture in his finger. [facility] resides permanently [facility]. History of dementia, GERD, hyperlipidemia, hypertension, megaloblastic anemia? Take sodium bicarbonate chronically? Trauma eval in emergency department demonstrating small right cerebellar contusion, age related findings CT head. Venous Doppler without deep venous thrombosis. Right and left hand x-ray without acute abnormality. Chest x-ray demonstrating possible pneumonia. Cervical spondylosis. Flu RSV COVID PCR negative. Admitted on 07/15 for further evaluation and workup. History is difficult to obtain from the who is a poor historian. We are still awaiting records from [place]. [facility] -no acute abnormalities on trauma workup except for suspected cerebellar contusion -PTOT consulted. They have since signed off reportedly since he is at his baseline. -fall precautions Cerebellar contusion/mass -Dr. Galeas contacted from emergency department and suggested the contusion is in an odd placement. Pending MRI brain to evaluate for mass. Reportedly the cannot provide information and the son lacks participation. Nursing team trying to get MRI form filled out again -get the medical records from the nursing facility -brain MRI or CT scan Head to follow-up on imaging from admission -07/20/2023: MRI brain done with and without contrast with results as below IMPRESSION: 1. 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 Additional small old lacunar infarcts at the left thalamus, right frontal lobe and bilateral cerebellar hemispheres. 2. Age-related changes including moderate diffuse volume loss and moderate scattered periventricular predominant nonspecific white matter T2 hyperintensity consistent with chronic small vessel ischemic disease. 3. Multiple scattered small foci of susceptibility artifact consistent with presence of old blood products likely related to chronic microhemorrhage such as in the setting of hypertension or amyloid angiopathy. -Follow-up closely with Neurosurgery -Neurology consult given for further evaluation and treatment recommendations Community-acquired pneumonia -init
[2023-07-21] MEDS: MIRTAZAPINE 7.5 MG TABLET PO (20:11)
[2023-07-21] MEDS: FOLIC ACID 1 MG TABLET PO (20:11)
[2023-07-22] VITALS (9 sets, daily range): BP systolic 130–147; BP diastolic 70–81; PULSE 66–88; RESP 14–18; TEMP 36.2–37.1; O2SAT 95–98
[2023-07-22 06:33] LABS: Basophils Percent Auto 0.5 % (0.2-1.2); Eosinophils Absolute Auto 0.1 K/mm3 (0-0.3); Hematocrit 31.5 % (42.0-52.0); Hemoglobin 9.9 g/dL (14.0-18.0); Immature Granulocyte Absolute 0.02 K/mm3 (0.00-0.031); Immature Granulocyte Percent A 0.2 % (0-0.5); Lymphocytes Absolute Auto 1.63 K/mm3 (0.9-3.2); Lymphocytes Percent Auto 19.4 % (18.3-44.2); Mean Corpuscular HGB Conc 31.4 g/dl (32-36); Mean Corpuscular Hemoglobin 34.1 pg (26-34); Mean Corpuscular Volume 108.6 fl (80-100); Monocytes Absolute Auto 0.8 K/mm3 (0.1-0.6); Monocytes Percent Auto 9.4 % (2.6-8.5); Neutrophils Absolute Auto 5.8 K/mm3 (1.3-6.7); Neutrophils Percent Auto 69.5 % (45.5-73.1); Platelet Count Result 311 k/mm3 (150-375); Red Cell Distribution Width 14.6 % (11.5-14.5); White Blood Count 8.4 K/mm3 (4.5-10.0)
[2023-07-22 06:49] LABS: Anion Gap 7 mmol/L (4-12); Blood Urea Nitrogen 44 mg/dL (9-20); Calcium 9.2 mg/dL (8.4-10.2); Carbon Dioxide 23 mmol/L (22-30); Chloride 109 mmol/L (98-107); Estimated CRCL calculation 19 ml/min; Estimated Glomerular Filt Rate 21; Glucose 84 mg/dL (65-110); Potassium 4.8 mmol/L (3.4-5.0); Sodium 139 mmol/L (137-145)
[2023-07-22] MEDS: SODIUM BICARBONATE TAB 650 MG TABLET 1300 MG PO ×2 (09:35→18:24)
[2023-07-22] MEDS: calcitrioL 0.25 MCG CAPSULE PO (09:36)
[2023-07-22] MEDS: ISOSORBIDE MONONITRATE 30 MG TAB.ER.24H PO (09:36)
[2023-07-22] MEDS: CYANOCOBALAMIN 1,000 MCG TABLET 1000 MCG PO (09:36)
[2023-07-22] MEDS: PANTOPRAZOLE SOD SESQUIHYDRATE 20 MG TAB PO (09:36)
[2023-07-22] MEDS: cloNIDine HCL 0.1 MG TABLET PO ×2 (09:36→18:23)
[2023-07-22] MEDS: NIFEdipine 30 MG TAB.ER.24 PO (09:36)
[2023-07-22] MEDS: SODIUM CHLORIDE 0.9% IV 1,000 ML 75 ML IV CONT (09:37)
--- NOTE | 2023-07-22 09:47 | WPDNEURCNPN ---
Assessment and Plan Assessment and plan (1) Cerebellar contusion: Qualifiers: Encounter type: initial encounter Loss of consciousness presence/duration: without LOC Qualified Code(s): S06.370A - Contusion, laceration, and hemorrhage of cerebellum without loss of consciousness, initial encounter Code(s): S06.37AA - Contusion, laceration, and hemorrhage of cerebellum with loss of consciousness status unknown, initial encounter Status: Acute (2) Dementia: Code(s): F03.90 - Unspecified dementia, unspecified severity, without behavioral disturbance, psychotic disturbance, mood disturbance, and anxiety Status: Acute (3) History of stroke: Code(s): Z86.73 - Personal history of transient ischemic attack (TIA), and cerebral infarction without residual deficits Status: Acute Plan Ezio Terry is a 78 year old male with a history of CKD, dementia presenting after an unwitnessed fall at a [place] [facility]. Patient was taken to [facility] ED where he had a CT head, which showed 7mm R cerebellar contusion. MRI brain done both with and without contrast did not show any 'cerebellar contusion', but did show old multifocal infarcts and small chronic microhemorrhages. CT head findings could be artifactual since MRI did not fern picker the same. As for the MRI findings, they are supportive of underlying dementia -- could be mixed pathology (vascular dementia and Alzheimer's given multiple strokes and evidence of diffuse volume loss). He does not take any blood thinners currently. If he hasn't already, he needs to follow with a Neurologist for underlying dementia and old strokes. He will need full stroke work-up (CTA brain/carotid, surface echo with bubbles study, LDL level, A1c), which could potentially be done as outpatient if needed since none of the strokes are acute. At the very least, he should be started on a baby aspirin as part of stroke secondary prevention. Consult date: 07/22/23 Reason for consult: Abnormal imaging findings HPI: Ezio Terry is a 78 year old male with a history of CKD, dementia presenting after an unwitnessed fall at a [place] [facility]. Patient was taken to [facility] ED where he had a CT head, which showed 7mm R cerebellar contusion. Patient is not currently on any blood thinners. He was diagnosed with pneumonia and subsequently admitted. ED discussed case with Neurosurgery who felt that the contusion was in an unusual place after a fall. MRI brain was done with and without contrast during the admission which did not show any evidence of a contusion but did show chronic infarcts in the R occipital and medial temporal lobe, additional small old lacunar infarcts at the L thalamus, R frontal lobe, and bilateral cerebellar hemispheres, age related changes including moderate diffuse volume loss, chronic microhemorrhages that may be seen in the setting of HTN or amyloid angiopathy. Review of Systems Review of Systems: patient very hard of hearing All systems reviewed & are unremarkable except as noted in HPI and below PMFSH Past Medical History Medical History CKD (chronic kidney disease) History of dementia History of gastroesophageal reflux (GERD) History of hyperlipidemia History of hypertension Megaloblastic anemia Social History Social History Smoking status: Never smoker Alcohol intake: former Substance use: never Substance use type: does not use Spiritual care concerns: No Meds Home Medications and Allergies Home Medications Medication Instructions Recorded Confirmed Type calcitriol 0.25 mcg capsule 0.25 mcg PO DAILY 07/17/23 07/17/23 History clonidine HCl 0.1 mg tablet 0.1 mg PO BID 07/17/23 07/17/23 History folic acid 1 mg tablet 1 mg PO HS 07/17/23 07/17/23 History isosorbide mononitrate 30 mg 30 mg PO DAILY 07/17/23 07/17/23 History tablet,extended release 24
--- NOTE | 2023-07-22 11:25 | PC.NURSE ---
On 07/22/23, the student, [Geni Candelario], provided care and completed [facility] documentation on this patient. I have reviewed the student's documentation and agree with the findings.
--- NOTE | 2023-07-22 13:38 | PM.CNNEP ---
Assessment and Plan Assessment and plan (1) EDMOND (acute kidney injury): Code(s): N17.9 - Acute kidney failure, unspecified Status: Acute Assessment and Plan: Patient has an elevated creatinine. It is unclear if this is acute or acute on chronic. The creatinine is rising so there certainly is an acute component. Patient does have pneumonia which can cause kidney disease. He might have been a little dehydrated on admission but he is been getting IV fluids while here. He could be having a reaction to the antibiotics. However he does not have a rash or peripheral eosinophilia. He is not on any medication that would do this. He does not have any signs or symptoms of inflammation or embolic disease. He could have obstruction, dialysis, ATN, or vascular disease. Will check a renal sonogram, urine electrolytes, urinalysis, and a CPK. I agree with continuing the IV fluids. Will check a chest x-ray to follow up (2) Pneumonia: Code(s): J18.9 - Pneumonia, unspecified organism Status: Acute Assessment and Plan: Patient is getting antibiotics. Will repeat the chest x-ray. (3) Dementia: Code(s): F03.90 - Unspecified dementia, unspecified severity, without behavioral disturbance, psychotic disturbance, mood disturbance, and anxiety Status: Acute Assessment and Plan: He is getting supportive care (4) Cerebellar lesion: Code(s): G93.9 - Disorder of brain, unspecified Status: Acute Assessment and Plan: He has an abnormal head CT and also MRI. Neurology following this along. (5) History of stroke: Code(s): Z86.73 - Personal history of transient ischemic attack (TIA), and cerebral infarction without residual deficits Status: Acute Assessment and Plan: Neurology is seeing History of Present Illness Reason for Consult Consult date: 07/22/23 Chief Complaint Chief complaint: Pneumonia History of Present Illness Narrative: Ezio is a very pleasant 78-year-old gentleman who has multiple medical problems including dementia, GERD, hyperlipidemia, and hypertension. The patient came in because of a [facility]. [facility] He was evaluated in the emergency room. CT brain showed a cerebellar contusion. Chest x-ray showed volume loss in the right hemidiaphragm. White cell count was okay. Creatinine was 2. No urine studies were done The patient was admitted. He was given antibiotics. Creatinine has gradually risen since admission so renal consultation was requested The patient not think he had kidney disease before this. There are no old labs to compare. He denies any bloody urine, foamy urine, kidney stones or bladder infections. Has no pain with urination. He denies hemoptysis, epistaxis, new joint pains, skin rash. Review of Systems Constitutional: Constitutional: Reports no additional constitutional complaints Eyes: Eyes: Reports no additional eye complaints ENT: Reports system reviewed and no additional complaints, except as documented Cardiovascular: Cardiovascular: Reports no additional cardiovascular complaints Respiratory: Respiratory: Reports no additional respiratory complaints Gastrointestinal: Gastrointestinal: Reports no additional gastrointestinal complaints Genitourinary: Genitourinary: Reports no additional male genitourinary complaints Musculoskeletal: Musculoskeletal: Reports no additional musculoskeletal complaints Integumentary/Breasts: Skin/Breast: Reports system reviewed and no additional complaints, except as docu Neurologic: Reports system reviewed and no additional complaints, except as documented Psychiatric: Psychiatric: Reports no additional psychiatric complaints Endocrine: Endocrine: Reports no additional endocrine complaints [facility] Past Medical History Medical History CKD (chronic kidney disease) History of dementia
[2023-07-22 14:23] LABS: Creatine Kinase 44 U/L (55-170)
--- NOTE | 2023-07-22 17:00 | PM.IMPN ---
Progress Note: A&P Assessment and Plan (1) Pneumonia: Qualifiers: Laterality: right Lung location: unspecified part of lung Pneumonia type: due to unspecified organism Qualified Code(s): J18.9 - Pneumonia, unspecified organism Code(s): J18.9 - Pneumonia, unspecified organism Status: Acute (2) Cerebellar contusion: Qualifiers: Encounter type: initial encounter Loss of consciousness presence/duration: without LOC Qualified Code(s): S06.370A - Contusion, laceration, and hemorrhage of cerebellum without loss of consciousness, initial encounter Code(s): S06.37AA - Contusion, laceration, and hemorrhage of cerebellum with loss of consciousness status unknown, initial encounter Status: Acute (3) Megaloblastic anemia: Code(s): D53.1 - Other megaloblastic anemias, not elsewhere classified Status: Acute (4) Dementia: Code(s): F03.90 - Unspecified dementia, unspecified severity, without behavioral disturbance, psychotic disturbance, mood disturbance, and anxiety Status: Acute (5) Fall: Code(s): W19.XXXA - Unspecified fall, initial encounter Status: Acute (6) CKD (chronic kidney disease): Code(s): N18.9 - Chronic kidney disease, unspecified Status: Acute Plan This is 78-year-old male who presents after an unwitnessed fall at his nursing facility 5 days ago. He had worsening swelling in his hand which prompted an x-ray which demonstrated fracture in his finger. [facility]. History of dementia, GERD, hyperlipidemia, hypertension, megaloblastic anemia? Take sodium bicarbonate chronically? Trauma eval in emergency department demonstrating small right cerebellar contusion, age related findings CT head. Venous Doppler without deep venous thrombosis. Right and left hand x-ray without acute abnormality. Chest x-ray demonstrating possible pneumonia. Cervical spondylosis. Flu RSV COVID PCR negative. Admitted on 07/15 for further evaluation and workup. History is difficult to obtain from the who is a poor historian. We are still awaiting records from [place]. Unwitnessed fall at [facility] -no acute abnormalities on trauma workup except for suspected cerebellar contusion -PTOT consulted. They have since signed off reportedly since he is at his baseline. -fall precautions Cerebellar contusion/mass -Dr. Galeas contacted from emergency department and suggested the contusion is in an odd placement. Pending MRI brain to evaluate for mass. Reportedly the cannot provide information and the son lacks participation. Nursing team trying to get MRI form filled out again -get the medical records from the nursing facility -brain MRI or CT scan Head to follow-up on imaging from admission -07/20/2023: MRI brain done with and without contrast with results as below IMPRESSION: 1. 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 Additional small old lacunar infarcts at the left thalamus, right frontal lobe and bilateral cerebellar hemispheres. 2. Age-related changes including moderate diffuse volume loss and moderate scattered periventricular predominant nonspecific white matter T2 hyperintensity consistent with chronic small vessel ischemic disease. 3. Multiple scattered small foci of susceptibility artifact consistent with presence of old blood products likely related to chronic microhemorrhage such as in the setting of hypertension or amyloid angiopathy. -Follow-up closely with Neurosurgery -Neurology consult given for further evaluation and treatment recommendations Community-acquired pneumonia -initially patient started on oral ceftriaxone and azithromycin, switched to oral Augmentin and azithromycin -he does not appear septic/toxic otherwise -WBC count stable Dementia -chronic, stable. Vitamin B12 deficiency -patient's vitamin B12 level is low at the 274 -07/21/2023: patient given cyanocobalamin 1
[2023-07-22 17:55] LABS: Appearance Urine Clear (Clear); Bacteria Urine None Seen /hpf; Bilirubin Urine Negative (Negative); Blood Urine Negative (Negative); Color Urine Yellow (Yellow); Glucose Urine UA Negative (Negative); Ketones Urine Negative (Negative); Leukocyte Esterase Ur Negative LEU/UL (Negative); Nitrate Urine Negative (Negative); Non Pathogenic Casts 0-2; Protein Urine Trace mg/dL (Negative); RBC Urine 0-2 /hpf (0-2); Specific Grav Ur 1.012 (1.001-1.035); Squamous Epithelial Cell Urine None Seen /hpf (Few); Urobilinogen Urine 0.2 mg/dL (<2.0); WBC Urine 0-5 /hpf (0-3)
[2023-07-22 18:06] LABS: Add Urine Microscopic? YES
[2023-07-22 18:13] LABS: Creatinine Urine 45.9 mg/dL; Total Protein Urine Random 34 mg/dL; Ur Ttl Prot Creatinine Ratio 0.74 mg/mg (0-0.20)
[2023-07-22 18:20] LABS: Sodium Urine Random 123 meq/L
[2023-07-22] MEDS: MIRTAZAPINE 7.5 MG TABLET PO (20:31)
[2023-07-22] MEDS: FOLIC ACID 1 MG TABLET PO (20:31)
[2023-07-23 00:01] VITALS: PULSE 87
[2023-07-23 04:03] VITALS: PULSE 72
[2023-07-23 05:43] LABS: Basophils Percent Auto 0.3 % (0.2-1.2); Eosinophils Absolute Auto 0.1 K/mm3 (0-0.3); Hematocrit 31.3 % (42.0-52.0); Hemoglobin 9.7 g/dL (14.0-18.0); Immature Granulocyte Absolute 0.03 K/mm3 (0.00-0.031); Immature Granulocyte Percent A 0.4 % (0-0.5); Lymphocytes Absolute Auto 1.23 K/mm3 (0.9-3.2); Lymphocytes Percent Auto 17.7 % (18.3-44.2); Mean Corpuscular Hemoglobin 33.4 pg (26-34); Mean Corpuscular Volume 107.9 fl (80-100); Mean Platelet Volume 11.2 fl (7.4-10.4); Monocytes Absolute Auto 0.8 K/mm3 (0.1-0.6); Monocytes Percent Auto 11.5 % (2.6-8.5); Neutrophils Absolute Auto 4.8 K/mm3 (1.3-6.7); Neutrophils Percent Auto 69.1 % (45.5-73.1); Platelet Count Result 301 k/mm3 (150-375); Red Cell Distribution Width 14.4 % (11.5-14.5); White Blood Count 6.9 K/mm3 (4.5-10.0)
[2023-07-23 05:49] LABS: Albumin Level 3.4 g/dL (3.5-5.1); Anion Gap 5 mmol/L (4-12); Blood Urea Nitrogen 42 mg/dL (9-20); Carbon Dioxide 23 mmol/L (22-30); Chloride 112 mmol/L (98-107); Estimated CRCL calculation 20 ml/min; Estimated Glomerular Filt Rate 23; Glucose 94 mg/dL (65-110); Phosphorus 4.5 mg/dL (2.5-4.5); Potassium 4.8 mmol/L (3.4-5.0); Sodium 140 mmol/L (137-145)
[2023-07-23 06:00] VITALS: BP 155/79; PULSE 74; RESP 16; TEMP 36.6; O2SAT 99
--- NOTE | 2023-07-23 08:41 | PM.PNNEP ---
Progress Note: A&P Assessment and Plan (1) EDMOND (acute kidney injury): Code(s): N17.9 - Acute kidney failure, unspecified Status: Acute Assessment and Plan: Patient has an elevated creatinine. It is unclear if this is acute or acute on chronic. The creatinine is rising so there certainly is an acute component. Urinalysis is bland. Urine electrolytes are non pre renal Urine protein is 740 CK is normal Renal ultrasound shows nothing acute except mild right hydronephrosis, unclear significance.. He did see the left kidney very well. Most likely ATN from pneumonia. The creatinine has come down a little bit. Will continue to observe (2) Pneumonia: Code(s): J18.9 - Pneumonia, unspecified organism Status: Acute Assessment and Plan: Patient is getting antibiotics. Will repeat the chest x-ray. (3) Dementia: Code(s): F03.90 - Unspecified dementia, unspecified severity, without behavioral disturbance, psychotic disturbance, mood disturbance, and anxiety Status: Acute Assessment and Plan: He is getting supportive care (4) Cerebellar lesion: Code(s): G93.9 - Disorder of brain, unspecified Status: Acute Assessment and Plan: He has an abnormal head CT and also MRI. Neurology following this along. (5) History of stroke: Code(s): Z86.73 - Personal history of transient ischemic attack (TIA), and cerebral infarction without residual deficits Status: Acute Assessment and Plan: Neurology is seeing Subjective Date/time seen: 07/23/23 08:41 Interval history: Ezio is resting comfortably in bed. No dyspnea Review of Systems Cardiovascular: Cardiovascular: Reports no additional cardiovascular complaints Respiratory: Respiratory: Reports no additional respiratory complaints Gastrointestinal: Gastrointestinal: Reports no additional gastrointestinal complaints Genitourinary: Genitourinary: Reports no additional male genitourinary complaints Exam Narrative: WDWN in NAD skin no rash head ncat lungs clear cor reg no rub abd BS+ nontender and soft ext no edema. Objective Data Vital Signs Vital Signs: Vital Signs - 24 hr 07/22/23 09:40 07/22/23 13:45 07/22/23 12:00 Temperature 97.1 F L Pulse Rate 78 85 Respiratory Rate 14 Blood Pressure 130/70 Pulse Oximetry 95 Oxygen Delivery Room Air 07/22/23 16:00 07/22/23 20:41 07/22/23 19:45 Temperature 98.8 F Pulse Rate 68 80 Respiratory Rate 16 Blood Pressure 147/78 H Pulse Oximetry 98 Oxygen Delivery Room Air 07/22/23 20:03 07/23/23 00:01 07/23/23 04:03 Temperature Pulse Rate 88 87 72 Respiratory Rate Blood Pressure Pulse Oximetry Oxygen Delivery 07/23/23 06:00 Temperature 97.9 F Pulse Rate 74 Respiratory Rate 16 Blood Pressure 155/79 H Pulse Oximetry 99 Oxygen Delivery Intake/Output Intake/Output: Intake & Output 07/20/23 07/21/23 07/22/23 07/23/23 23:59 23:59 23:59 23:59 Intake Total 698 6085 357 8317 Output Total 1850 2700 600 Balance -1152 1370 -1740 400 Meds/Results Medications: Active Medications Generic Name Dose Route Start Last Admin Trade Name Sumanthq PRN Reason Stop Dose Admin Calcitriol 0.25 mcg 07/17/23 09:00 07/22/23 09:36 Calcitriol 0.25 Mcg Capsule PO 0.25 mcg DAILY CARLEY Administration Clonidine HCl 0.1 mg 07/17/23 09:00 07/22/23 18:23 Clonidine Hcl 0.1 Mg Tablet PO 0.1 mg BID CARLEY Administration Cyanocobalamin 1,000 mcg 07/22/23 09:00 07/22/23 09:36 Cyanocobalamin 1,000 Mcg Tablet PO 1,000 mcg QAM CARLEY Administration Folic Acid 1 mg 07/17/23 21:00 07/22/23 20:31 Folic Acid 1 Mg Tablet PO 1 mg HS CARLEY Administration Sodium Chloride 1,000 mls @ 75 mls/hr 07/22/23 08:55 07/23/23 05:16 Normal Saline Iv IV CONT Not Given .[id number] CARLEY Isosorbide Mononitrate 30 mg 07/17/23 09:00 07/22/23 09:36 Isosorbide Mononi
[2023-07-23] MEDS: calcitrioL 0.25 MCG CAPSULE PO (10:07)
[2023-07-23] MEDS: NIFEdipine 30 MG TAB.ER.24 PO (10:07)
[2023-07-23] MEDS: PANTOPRAZOLE SOD SESQUIHYDRATE 20 MG TAB PO (10:07)
[2023-07-23] MEDS: cloNIDine HCL 0.1 MG TABLET PO ×2 (10:07→17:22)
[2023-07-23] MEDS: ISOSORBIDE MONONITRATE 30 MG TAB.ER.24H PO (10:07)
[2023-07-23] MEDS: SODIUM BICARBONATE TAB 650 MG TABLET 1300 MG PO ×2 (10:07→17:22)
[2023-07-23] MEDS: CYANOCOBALAMIN 1,000 MCG TABLET 1000 MCG PO (10:07)
[2023-07-23] MEDS: SODIUM CHLORIDE 0.9% IV 1,000 ML 75 ML IV CONT (11:04)
[2023-07-23 14:06] VITALS: BP 123/71; PULSE 86; RESP 16; TEMP 36.6; O2SAT 95
--- NOTE | 2023-07-23 14:42 | PM.DS ---
DS: Admitting Diagnosis Discharge Date 07/23/2023: Admitting Diagnosis (1) Pneumonia: ?Code(s): J18.9 - Pneumonia, unspecified organism ?Status:?Acute ?Assessment and Plan: ?admit to regular medical floor ?patient started on Rocephin Zithromax ?await cultures (2) Fall: ?Code(s): W19.XXXA - Unspecified fall, initial encounter ?Status:?Acute ?Assessment and Plan: ?fall precautions (3) EDMOND (acute kidney injury): ?Code(s): N17.9 - Acute kidney failure, unspecified ?Status:?Acute ?Assessment and Plan: ?holding losartan ?gentle hydration ?continue to monitor BUN and creatinine (4) Cerebellar contusion: ?Code(s): S06.37AA - Contusion, laceration, and hemorrhage of cerebellum with loss of consciousness status unknown, initial encounter ?Status:?Acute ?Assessment and Plan: ?noted on CT of the head ?patient with advanced dementia (5) Dementia: ?Code(s): F03.90 - Unspecified dementia, unspecified severity, without behavioral disturbance, psychotic disturbance, mood disturbance, and anxiety ?Status:?Acute ?Assessment and Plan: ?supportive care (6) Megaloblastic anemia: ?Code(s): D53.1 - Other megaloblastic anemias, not elsewhere classified ?Status:?Acute ?Assessment and Plan: ?continue folic acid DS: Discharge Diagnosis Discharge Diagnosis (1) EDMOND (acute kidney injury): Code(s): N17.9 - Acute kidney failure, unspecified Status: Acute (2) Fall: Code(s): W19.XXXA - Unspecified fall, initial encounter Status: Acute (3) Cerebellar contusion: Code(s): S06.37AA - Contusion, laceration, and hemorrhage of cerebellum with loss of consciousness status unknown, initial encounter Status: Acute (4) Pneumonia: Code(s): J18.9 - Pneumonia, unspecified organism Status: Acute (5) Dementia: Code(s): F03.90 - Unspecified dementia, unspecified severity, without behavioral disturbance, psychotic disturbance, mood disturbance, and anxiety Status: Acute (6) Megaloblastic anemia: Code(s): D53.1 - Other megaloblastic anemias, not elsewhere classified Status: Acute (7) Cerebellar contusion: Qualifiers: Encounter type: initial encounter Loss of consciousness presence/duration: without LOC Qualified Code(s): S06.370A - Contusion, laceration, and hemorrhage of cerebellum without loss of consciousness, initial encounter Code(s): S06.37AA - Contusion, laceration, and hemorrhage of cerebellum with loss of consciousness status unknown, initial encounter Status: Acute (8) Pneumonia: Qualifiers: Laterality: right Lung location: unspecified part of lung Pneumonia type: due to unspecified organism Qualified Code(s): J18.9 - Pneumonia, unspecified organism Code(s): J18.9 - Pneumonia, unspecified organism Status: Acute (9) CKD (chronic kidney disease): Code(s): N18.9 - Chronic kidney disease, unspecified Status: Acute (10) Cerebellar lesion: Code(s): G93.9 - Disorder of brain, unspecified Status: Acute (11) History of stroke: Code(s): Z86.73 - Personal history of transient ischemic attack (TIA), and cerebral infarction without residual deficits Status: Acute (12) Abnormal brain MRI: Code(s): R90.89 - Other abnormal findings on diagnostic imaging of central nervous system Status: Acute (13) Cerebral arteriosclerosis with history of previous cerebrovascular accident: Code(s): I67.2 - Cerebral atherosclerosis; Z86.73 - Personal history of transient ischemic attack (TIA), and cerebral infarction without residual deficits Status: Acute DS: Summary Hospital Course Reason for hospitalization: [facility] Course: H&P: HPI History of Present Illness Date/Time: 07/16/23? 23:52 Chief Complaint: Fall Narrative: ?
[2023-07-23] MEDS: CYANOCOBALAMIN INJ 1,000 MCG/ML VIAL 1000 MCG IM (15:22)
[2023-07-23 19:34] VITALS: BP 122/70; PULSE 72; RESP 18; TEMP 36; O2SAT 96
[2023-07-23] MEDS: MIRTAZAPINE 7.5 MG TABLET PO (20:37)
[2023-07-23] MEDS: FOLIC ACID 1 MG TABLET PO (20:37)
== END 2023-07-23 22:23 | DRG 193 ==
LOC: ANHED 17:34 → ANH2MED 23:50
PROVIDERS: General Practice; Internal Medicine Nephrology; Admitting Provider Internal Medicine; Emergency Provider Physician Assistant; PCP Internal Medicine; Visit Provider Family Medicine
DX: J18.9 Pneumonia, unspecified organism (principal); S06.370A Contusion, laceration, and hemorrhage of cerebellum without loss of consciousness, initial encounter; N17.9 Acute kidney failure, unspecified; W19.XXXA Unspecified fall, initial encounter; Z20.822 Contact with and (suspected) exposure to COVID-19; I12.9 Hypertensive chronic kidney disease with stage 1 through stage 4 chronic kidney disease, or unspecified chronic kidney disease; N18.30 Chronic kidney disease, stage 3 unspecified; F03.90 Unspecified dementia, unspecified severity, without behavioral disturbance, psychotic disturbance, mood disturbance, and anxiety; K21.9 Gastro-esophageal reflux disease without esophagitis; E78.5 Hyperlipidemia, unspecified; D53.1 Other megaloblastic anemias, not elsewhere classified; G93.9 Disorder of brain, unspecified; E53.8 Deficiency of other specified B group vitamins
CPT/HCPCS: 36415; 70450; 70553; 71045; 71046; 72125; 73130; 73521; 74018; 76775; 80048; 80053; 80069; 81001; 82550; 82570; 82607; 82746; 82948; 83735; 83880; 84100; 84156; 84300; 85025; 87040; 87637; 93970; 96365; 96367; 96376; 97161; 97165; 99285; A9270; A9577; G0378; J0456; J0696; J3420; J7030